=== PATIENT | female | born 1955 | race African-American/Black ===

== ENCOUNTER 2017-02-06 10:45 | Day surgery (SDC) | payer OTHER ==
[~2017-02-06] VITALS: Ht 152.4 cm; Wt 126.5 kg
[~2017-02-06 10:45] MED LIST: BUSPAR15 MG PO; ERGOCALCIF50000 UNIT; FENTANYL1 EAC4 TD; FOLIC ACID0.4 MG PO; GLYBURIDE MICR1.5 M1 PO; GLYBURIDE5 MG PO; HYDROCHLOROTH12.5 M1 PO; HYDROCHLOROTH12.5 M3 PO; HYDROCODON-ACE1 EAC1 PO; IBUPROFEN800 MG PO; LASIX40 MG PO; LEVEMIR100 UNIT/1 SQ; LEVEMIR100 UNIT/2 SC; LEXAPRO10 MG PO; LIPITOR40 MG PO; LOVASTATIN PO; MORPHINE SULFAT15 M1 PO; NEXIUM40 MG PO; NOVOLOG 10100 UNITS/ SC; NOVOLOG PE100 UNITS/ SC; NOVOLOG100 UNIT/2 SQ; OXYCODONE-APAP1 EACH; PERCOCET 7.51 TABLET PO; PRAVACHOL40 MG PO; PRISTIQ50 MG PO; ULTRAM50 MG PO; VENTOLIN HFA18 GM IH; VITAMIN D400 INTUNI PO; XANAX0.5 MG PO; ZANAFLEX2 M1 PO
[2017-02-06 11:52] LABS: POINT-OF-CARE METER ID UU14174212
[2017-02-06 12:22] LABS: ANION GAP 11 MEQ/L (2-14); CHLORIDE 104 MEQ/L (99-109); POTASSIUM 4.8 MEQ/L (3.7-5.4); SAMPLE HEMOLYSIS CHECK 1; SAMPLE ICTERIC CHECK 0; SAMPLE LIPEMIA CHECK 0; SODIUM 143 MEQ/L (136-147)
[2017-02-06 12:27] LABS: GFR ESTIMATE (CALCULATED) > 59 mL/min/; GLUCOSE 99 mg/dL (70-99); UREA NITROGEN (BUN) 21 mg/dL (9-23)
[2017-02-06 12:57] LABS: METH RESISTANT S AUREUS PCR NEGATIVE (NEGATIVE)
== END 2017-02-06 13:02 | disposition home or self-care (01) ==
LOC: PAIN 10:45 → SDC 11:15 → PAIN 11:15
PROVIDERS: Anesthesiology; Anesthesiology Pain Medicine
DX: M47.816 Spondylosis without myelopathy or radiculopathy, lumbar region (principal); M51.16 Intervertebral disc disorders with radiculopathy, lumbar region; M43.10 Spondylolisthesis, site unspecified; M79.1 Myalgia; E66.01 Morbid (severe) obesity due to excess calories; Z68.43 Body mass index [BMI] 50.0-59.9, adult; M25.551 Pain in right hip; M25.552 Pain in left hip; Z79.891 Long term (current) use of opiate analgesic; F41.9 Anxiety disorder, unspecified; J45.909 Unspecified asthma, uncomplicated; G89.29 Other chronic pain; K21.9 Gastro-esophageal reflux disease without esophagitis; E78.5 Hyperlipidemia, unspecified; I10 Essential (primary) hypertension; M16.0 Bilateral primary osteoarthritis of hip; G47.30 Sleep apnea, unspecified; E11.9 Type 2 diabetes mellitus without complications; E55.9 Vitamin D deficiency, unspecified; Z79.4 Long term (current) use of insulin; Z87.891 Personal history of nicotine dependence; Z90.49 Acquired absence of other specified parts of digestive tract
CPT/HCPCS: 80048; 82948; 87641; 93005; J1030; J1885; J2250; J3010; S0020

== ENCOUNTER 2017-02-13 10:56 | Day surgery (SDC) | payer OTHER ==
[~2017-02-13] VITALS: Ht 152.4 cm; Wt 126.6 kg
[2017-02-13 11:58] LABS: POINT-OF-CARE METER ID UU14174212
== END 2017-02-13 12:55 | disposition home or self-care (01) ==
LOC: PAIN 10:56 → SDC 11:15 → PAIN 11:15
PROVIDERS: Anesthesiology Pain Medicine
DX: M47.26 Other spondylosis with radiculopathy, lumbar region (principal); M79.1 Myalgia; M43.16 Spondylolisthesis, lumbar region; M51.16 Intervertebral disc disorders with radiculopathy, lumbar region; F41.9 Anxiety disorder, unspecified; E66.01 Morbid (severe) obesity due to excess calories; Z68.43 Body mass index [BMI] 50.0-59.9, adult; I10 Essential (primary) hypertension; Z87.891 Personal history of nicotine dependence; K21.9 Gastro-esophageal reflux disease without esophagitis
CPT/HCPCS: 82948; J1030; J2250; J3010; S0020

== ENCOUNTER 2017-06-09 19:08 | Emergency (ER) | payer OTHER ==
[~2017-06-09] VITALS: Ht 152.4 cm; Wt 132.9 kg
[2017-06-09 22:26] VITALS: BP 135/91
== END 2017-06-09 22:36 | disposition home or self-care (01) ==
LOC: EME 19:08
DX: N18.9 Chronic kidney disease, unspecified (principal); I12.9 Hypertensive chronic kidney disease with stage 1 through stage 4 chronic kidney disease, or unspecified chronic kidney disease; E11.22 Type 2 diabetes mellitus with diabetic chronic kidney disease; R60.0 Localized edema; M25.571 Pain in right ankle and joints of right foot; E78.5 Hyperlipidemia, unspecified; F32.9 Major depressive disorder, single episode, unspecified; F41.9 Anxiety disorder, unspecified; J45.909 Unspecified asthma, uncomplicated; K21.9 Gastro-esophageal reflux disease without esophagitis; Z87.891 Personal history of nicotine dependence; Z79.891 Long term (current) use of opiate analgesic; Z88.8 Allergy status to other drugs, medicaments and biological substances; Z88.5 Allergy status to narcotic agent; Z79.4 Long term (current) use of insulin; E66.01 Morbid (severe) obesity due to excess calories; Z68.43 Body mass index [BMI] 50.0-59.9, adult
CPT/HCPCS: 93971; 99281; 99283; J1100